=== PATIENT | male | born 1990 | race African-American/Black ===

== ENCOUNTER 2016-06-29 16:09 | Emergency (ER) | payer SELFPAY ==
[2016-06-29 16:19] VITALS: BP 137/93; PULSE 65; TEMP 98.5; BMI 22.1
--- NOTE | 2016-06-29 16:28 | PDOC ---
History of Present Illness - History of Present Illness Initial Comments: 06/29/16 16:25 25-year-old male with a negative past medical history, who is on no medications He was standing at work, lifting a heavy box, and the box fell onto the dorsum of his left foot He is complaining of pain and swelling on the dorsum of his left foot He denies any numbness or tingling in his toes He denies any ankle pain He denies any heel pain He was wearing regular sneakers when this happened He denies any other injury at this time <Lenka Yang - Last Filed: 06/29/16 16:58> <Sandeep Mayberry - Last Filed: 06/29/16 17:41> - General Chief Complaint: Injury Stated Complaint: FOOT INJURY Time Seen by Provider: 06/29/16 16:14 Past History - Past Medical History Other medical history: PT DENIES - Psycho/Social/Smoking Cessation Hx Anxiety: No Suicidal Ideation: No Smoking History: Current every day smoker Number of Cigarettes Smoked Daily: 20 Information on smoking cessation initiated: No Hx Alcohol Use: Yes (OCCASIONAL) Drug/Substance Use Hx: No Substance Use Type: None <Lenka Yang - Last Filed: 06/29/16 16:58> <Sandeep Mayberry - Last Filed: 06/29/16 17:41> - Past Medical History Allergies/Adverse Reactions: Allergies Allergy/AdvReac Type Severity Reaction Status Date / Time No Known Allergies Allergy Verified 06/29/16 16:16 Home Medications: Ambulatory Orders NK [No Known Home Medication] 06/29/16 *Physical Exam - Vital Signs Last Vital Signs Temp Pulse Resp BP Pulse Ox 98.5 F 65 18 137/93 100 06/29/16 16:17 06/29/16 16:17 06/29/16 16:17 06/29/16 16:17 06/29/16 16:17 - Physical Exam Comments: 06/29/16 16:26 Physical exam Last Vital Signs Temp Pulse Resp BP Pulse Ox 98.5 F 65 18 137/93 100 06/29/16 16:17 06/29/16 16:17 06/29/16 16:17 06/29/16 16:17 06/29/16 16:17 Patient is alert and ambulatory and answering questions Head is normocephalic and atraumatic Left lower extremity- There is full range of motion of the left knee and left ankle The Achilles tendon is intact There is no calf tenderness There is no heel tenderness There is some diffuse tenderness on the mid to proximal dorsum of the foot, with some swelling There is no point tenderness There is minimal tenderness on the distal dorsum of the foot and into the toes There is no toe tenderness The toes are all warm, with intact sensation and good capillary refill The dorsalis pedis pulses intact There is no tenderness on the bottom of the foot Patient is able to dorsiflex and plantar flex all toes, and dorsiflex and R flex the foot without difficulty No other tenderness is noted <Lenka Yang - Last Filed: 06/29/16 16:58> - Vital Signs Last Vital Signs Temp Pulse Resp BP Pulse Ox 98.5 F 65 18 137/93 100 06/29/16 16:17 06/29/16 16:17 06/29/16 16:17 06/29/16 16:17 06/29/16 16:17 <Sandeep Mayberry - Last Filed: 06/29/16 17:41> ED Treatment Course - RADIOLOGY Radiology Studies Ordered: Category Date Time Status FOOT-LEFT [RAD] Stat Radiology 06/29/16 16:25 Ordered <Lenka Yang - Last Filed: 06/29/16 16:58> Medical Decision Making - Medical Decision Making 06/29/16 16:55 Left foot series as read by me-NAD Impression-contusion of dorsum of foot <Lenka Yang - Last Filed: 06/29/16 16:58> - Medical Decision Making 06/29/16 17:40 Foot X-Ray IMPRESSION: No evidence of acute fracture or dislocation. Reported by Dr. Marv Kulkarni <Sandeep Mayberry - Last Filed: 06/29/16 17:41> *DC/Admit/Observation/Transfer <Lenka Yang - Last Filed: 06/29/16 16:58> - Attestations Scribe Attestion: 06/29/16 17:41 Documentation prepared by Sandeep Mayberry, acting as medical device sales for Lenka Mcfarlane MD. <JefeSandeep - Last Filed: 06/29/16 17:41> Diagnosis at time of Disposition: Contusion of foot - Discharge Dispostion Disposition: HOME Condition at time of disposition: Stable - Referrals Referrals: Juan Manuel Anderson MD [Staff Physician] - (Orthopedics-call for an appointment if you are not improving in the next few days) - Patient Instructions Printed Discharge Instructions: Contusion Additional Instructions: Ice packs off and on for the next 24 hours, elevate foot, and rest Tylenol or Motrin for discomfort if needed Return immediately if you develop numbness your toes or foot, severe swelling, or any other concerns you may have Followup with orthopedics if you are not improving in the next few days Return immediately if you worsen in any way Wear a loose fitting shoe on that foot The x-ray reading is a preliminary reading, if there is any change when the radiologist reads the x-rays you will be called - Post Discharge Activity Work/School Note: Back to Work
== END 2016-06-29 17:10 | disposition home or self-care (01) ==
LOC: FER 16:09
DX: S90.32XA Contusion of left foot, initial encounter (principal); W20.8XXA Other cause of strike by thrown, projected or falling object, initial encounter; Y93.9 Activity, unspecified; Y92.9 Unspecified place or not applicable; F17.210 Nicotine dependence, cigarettes, uncomplicated
CPT/HCPCS: 73630-TC-LT; 99282-25